=== PATIENT | male | born 1965 | race Caucasian/White ===

== ENCOUNTER → 2021-11-28 08:49 | Emergency (ER) | payer SELFPAY | END | disposition left against medical advice (07) | PROVIDERS: Emergency Provider Internal Medicine Hematology & Oncology | DX: Z53.21 Procedure and treatment not carried out due to patient leaving prior to being seen by health care provider (principal) | CPT/HCPCS: 99199 ==

== ENCOUNTER 2024-03-01 09:37 | Emergency (ER) | payer OTHER, SELFPAY ==
--- NOTE | 2024-03-01 09:39 | ED.GENADULT ---
HPI - General Adult General Chief complaint: Dizziness Stated complaint: dizziness Time Seen by Provider: 03/01/24 09:54 Source: patient, RN notes reviewed and old records reviewed Mode of arrival: ambulatory Limitations: no limitations History of Present Illness HPI narrative: 58-year-old male with no past medical history. Has not seen a doctor since he was probably in high school. Patient presents with dizziness that has been intermittent since waking up at 5:00 a.m. this morning. Patient denies any other symptoms other than dizziness. Patient denies any chest pain, shortness of breath. States he does not have any blurry vision or headaches. Onset (ago): hour(s) (5-6) Related Data Allergies Allergy/AdvReac Type Severity Reaction Status Date / Time No Known Allergies Allergy Verified 11/28/21 10:17 Review of Systems Review of Systems: All systems reviewed & are unremarkable except as noted in HPI and below Constitutional: Constitutional: Reports no additional constitutional complaints ENT: Reports system reviewed and no additional complaints, except as documented Cardiovascular: Cardiovascular: Reports no additional cardiovascular complaints, Denies chest pain and Denies dyspnea Respiratory: Respiratory: Reports no additional respiratory complaints, Denies chest congestion, Denies cough and Denies dyspnea Gastrointestinal: Gastrointestinal: Reports no additional gastrointestinal complaints, Denies abdominal pain, Denies nausea and Denies vomiting Musculoskeletal: Musculoskeletal: Reports no additional musculoskeletal complaints Integumentary/Breasts: Skin/Breast: Reports system reviewed and no additional complaints, except as docu Neurologic: Reports as per HPI and Reports dizziness PMFSH Comments At the time of my signature, I reviewed and agree with the nursing past medical, surgical, social, and family history. There is no relevant family history pertinent to the patient complaint. Exam Const: General: cooperative, healthy appearing, comfortable, no acute distress, well developed, alert and well nourished Nutritional Appearance: well nourished Orientation/consciousness: patient oriented x3 Limitations: no limitations HENMT: Head: normal to inspection Ears: hearing grossly normal bilaterally, external ears normal, TM's normal bilaterally, EAC's normal, mastoids normal and no periauricular adenopathy Face/Nose/Sinus: Normal external nose present, normal facial exam and face symmetric Face and sinus: normal facial exam and face symmetric Mouth: Yes Normal oral and palatal mucosa present, Yes lip normal and Yes tongue normal Throat: posterior oropharynx normal, uvula midline and no uvular edema Eyes: General: appearance normal, both eyes and all related structures Alignment and Position: alignment normal Periorbital: periorbital findings normal Eyelids: eyelids normal Neck: Neck: normal visual inspection, full ROM, no lymphadenopathy and no meningeal signs Chest: Chest palpation & inspection: normal inspection of the chest Resp: Effort & Inspection: normal respiratory effort and able to speak in complete sentences Auscultation: clear to auscultation bilaterally, no crackles, no rales, no rhonchi and no wheezes Cardio: Rate: tachycardic Skin: General skin exam: normal color and no rashes or lesions noted Lesions: no lesions Rashes: no rashes Wounds: no wounds Neuro: General: patient oriented x3, gait normal, tone normal, moves all extremities and no meningeal signs Cognition (Neuro): normal cognition Speech: normal speech Gait exam (Neuro): Normal gait present Extrem: General: normal to inspection, full ROM, capillary refill normal and normal gait Psych: Appearance: grossly normal and well kempt Mental Status: mental status grossly normal Speech and movement: Normal speech and movement present and Clear speech present Affect: normal affect Attitude: cooperative Course Course Emergency Course: When hiking patient up to EKG attempted to capture higher heart rate, noted to be 170-180. Was unable to capture Level of Care: Express Care Visit Vital Signs Vital signs: Vital Signs Temperature 99.8 F H 03/01/24 09:51 Pulse Rate 109 H 03/01/24 09:51 Respiratory Rate 16 03/01/24 09:51 Blood Pressure 143/90 H 03/01/24 09:51 Pulse Oximetry 98 03/01/24 09:51 Oxygen Delivery Room Air 03/01/24 09:51 Temperature 99.8 F H 03/01/24 09:51 Pulse Rate 109 H 03/01/24 09:51 Respiratory Rate 16 03/01/24 09:51 Blood Pressure 143/90 H 03/01/24 09:51 Pulse Oximetry 98 03/01/24 09:51 Oxygen Delivery Room Air 03/01/24 09:51 Reviewed Transfer Transfered to: [facility] Transportation: Other (POV per patient request, declined EMS) Transfer rationale: Patient with intermittent dizziness, abnormal EKG, denies any past medical history sending for higher level of care Accepting physician: Spoke with Dr. Hellen Garcia Decision Making [facility] Narrative Medical decision making narrative: Patient sitting comfortably in exam room. Nontoxic, vitals stable. Patient in no acute distress Patient presents for for intermittent dizziness since this morning. Abnormal EKG. Patient being transferred for further evaluation Transfer instructions reviewed with patient to go directly to the emergency room. EMS offered, he declined. All questions have been answered, and the patient deny any further questions. Some parts of this dictation were generated by voice recognition software and may contain typographical and/or grammatical inaccuracies. Differential Diagnosis Differential Diagnosis: Dizziness, otitis media, serous otitis, vertigo, cardiac issue Medical Records Medical records reviewed: Yes I reviewed the external patient's medical records. Vital Signs Vital Signs: Vital Signs Temperature 99.8 F H 03/01/24 09:51 Pulse Rate 109 H 03/01/24 09:51 Respiratory Rate 16 03/01/24 09:51 Blood Pressure 143/90 H 03/01/24 09:51 Pulse Oximetry 98 03/01/24 09:51 Oxygen Delivery Room Air 03/01/24 09:51 Temperature 99.8 F H 03/01/24 09:51 Pulse Rate 109 H 03/01/24 09:51 Respiratory Rate 16 03/01/24 09:51 Blood Pressure 143/90 H 03/01/24 09:51 Pulse Oximetry 98 03/01/24 09:51 Oxygen Delivery Room Air 03/01/24 09:51 Reviewed Lab Data Lab results reviewed: Yes I reviewed the patient's lab results. Labs: Reviewed ECG Data EKG #1: Attestation: I personally reviewed and interpreted this ECG as follows: ECG completion date: 03/01/24 ECG completion time: 10:04 Prior ECG tracings: not available for review Interpretation: Sinus tachycardia with occasional supraventricular premature complex. Right bundle branch block. Ventricle rate 107, TN interval 182, QRS duration 149. Critical Care Time Critical Care Time Critical Care Time: No Discharge Plan Discharge Clinical Impression: Dizziness, Abnormal ECG Patient Disposition: Acute Care Hospital Condition: Stable Patient Language: Syriac Follow-up/Referrals: PHYSICIAN,[employer] B[employer] LABORATORY TECHNOLOGIST [Primary Care Provider] -
[2024-03-01 09:51] VITALS: BP 143/90; PULSE 109; RESP 16; TEMP 37.7; O2SAT 98
--- NOTE | 2024-03-01 09:57 | ECG_ITS ---
Test Date: 2024-03-01 10:04:36 Measurements Intervals [place] Rate: 107 P: 40 PA: 182 QRS: 29 QRSD: 149 T: -14 QT: 338 QTc: 453 Interpretive Statements SINUS TACHYCARDIA WITH OCCASIONAL SUPRAVENTRICULAR PREMATURE COMPLEXES RIGHT BUNDLE BRANCH BLOCK [120+ ms QRS DURATION, UPRIGHT V1, 40+ ms S IN I/aVL/V4/V5/V6] No previous ECG available for comparison Electronically Signed On 03-01-2024 18:41:43 SPRAY OPERATOR by Mino Trevizo M.D.
== END 2024-03-01 10:12 | disposition short-term general hospital (02) ==
PROVIDERS: Emergency Provider Nurse Practitioner
DX: R42 Dizziness and giddiness (principal); R94.31 Abnormal electrocardiogram [ECG] [EKG]
CPT/HCPCS: 93005; 99213; G0463

== ENCOUNTER 2024-03-01 10:52 | Emergency (ER) | payer OTHER, SELFPAY ==
[2024-03-01] VITALS (7 sets, daily range): BP systolic 126–170; BP diastolic 93–105; PULSE 104–126; RESP 12–21; TEMP 36.9; O2SAT 97–100
--- NOTE | 2024-03-01 11:11 | ECG_ITS ---
Test Date: 2024-03-01 11:13:45 Measurements Intervals [place] Rate: 115 P: 44 MT: 181 QRS: 6 QRSD: 145 T: -16 QT: 331 QTc: 458 Interpretive Statements SINUS TACHYCARDIA RIGHT BUNDLE BRANCH BLOCK [120+ ms QRS DURATION, UPRIGHT V1, 40+ ms S IN I/aVL/V4/V5/V6] Compared to ECG 03/01/2024 10:04:36 No significant changes Electronically Signed On 03-01-2024 18:44:23 PRIMER INSERTING MACHINE ADJUSTER by Mino Trevizo M.D.
[2024-03-01 11:37] LABS: Basophils Absolute Auto 0.1 K/mm3 (0.0-0.1); Eosinophils Absolute Auto 0.4 K/mm3 (0-0.3); Eosinophils Percent Auto 4.3 % (0-4.4); Hematocrit 45.5 % (42.0-52.0); Hemoglobin 15.4 g/dL (14.0-18.0); Immature Granulocyte Absolute 0.01 K/mm3 (0.00-0.031); Immature Granulocyte Percent A 0.1 % (0-0.5); Lymphocytes Absolute Auto 1.57 K/mm3 (0.9-3.2); Lymphocytes Percent Auto 18.1 % (18.3-44.2); Mean Corpuscular HGB Conc 33.8 g/dl (32-36); Mean Corpuscular Hemoglobin 28.8 pg (26-34); Mean Corpuscular Volume 85.2 fl (80-100); Mean Platelet Volume 9.6 fl (7.4-10.4); Monocytes Absolute Auto 0.9 K/mm3 (0.1-0.6); Monocytes Percent Auto 10.2 % (2.6-8.5); Neutrophils Absolute Auto 5.8 K/mm3 (1.3-6.7); Neutrophils Percent Auto 66.3 % (45.5-73.1); Platelet Count Result 276 k/mm3 (150-375); Red Blood Count 5.34 M/mm3 (4.6-6.20); White Blood Count 8.7 K/mm3 (4.5-10.0)
[2024-03-01 11:47] LABS: Alanine Aminotransferase 24 U/L (6-50); Albumin Level 4.4 g/dL (3.5-5.1); Alkaline Phosphatase 59 U/L (38-126); Anion Gap 7 mmol/L (4-12); Aspartate Amino Transferase 24 U/L (17-59); Bilirubin,Total 0.6 mg/dL (0.2-1.3); Blood Urea Nitrogen 15 mg/dL (9-20); Calcium 9.3 mg/dL (8.4-10.2); Carbon Dioxide 26 mmol/L (22-30); Chloride 107 mmol/L (98-107); Estimated Glomerular Filt Rate > 60; Glucose 103 mg/dL (65-110); Potassium 3.7 mmol/L (3.4-5.0); Sodium 140 mmol/L (137-145)
[2024-03-01 12:42] LABS: D Dimer 0.32 ug/mL (<0.48); Troponin I < 0.012 ng/mL (0.000-0.034)
[2024-03-01 13:19] LABS: Influenza A QL RT-PCR Negative (Negative); Influenza B QL RT-PCR Negative (Negative); RSV RNA, RT-PCR Negative (Negative); SARS-CoV-2 RNA PCR Negative (Negative)
--- NOTE | 2024-03-01 18:40 | ED_ITS ---
HPI - Dizziness General Chief Complaint: Dizziness Stated Complaint: dizziness Time Seen by Provider: 03/01/24 11:12 History of Present Illness HPI Narrative: This morning patient got up and felt slightly lightheaded, he sat down and felt better. If he cannot remember the last time he has felt lightheaded, he has no chest pain, shortness of breath, headache, focal numbness or weakness, or any other symptoms. He has been eating and drinking normally. Does not see any doctor has not seen a doctor since he was a child Related Data Allergies Allergy/AdvReac Type Severity Reaction Status Date / Time No Known Allergies Allergy Verified 11/28/21 10:17 Course Vital Signs Vital signs: Vital Signs Pulse Rate 126 H 03/01/24 11:07 Respiratory Rate 18 03/01/24 11:07 Blood Pressure 170/94 H 03/01/24 11:07 Pulse Oximetry 98 03/01/24 11:07 Temperature 98.4 F 03/01/24 13:10 Pulse Rate 114 H 03/01/24 12:31 Respiratory Rate 12 03/01/24 12:31 Blood Pressure 147/105 H 03/01/24 12:31 Pulse Oximetry 100 03/01/24 12:31 Oxygen Delivery Room Air 03/01/24 11:34 MDM - Dizziness MDM Narrative Medical decision making narrative: This morning patient got up and felt slightly lightheaded, he sat down and felt better. If he cannot remember the last time he has felt lightheaded, he has no chest pain, shortness of breath, headache, focal numbness or weakness, or any other symptoms. He has been eating and drinking normally. Does not see any doctor has not seen a doctor since he was a child. Since he has been here, his symptoms have resolved. Denies any complaints. He is tachycardic here, EKG on my independent interpretation shows sinus tachycardia rate 115, TN 181, QRS 145, QTC 458, no ST elevations depressions, does show a right bundle branch block. Basic labs are obtained here and are normal including troponin and D-dimer. He has no complaints and no symptoms currently, he does have elevated blood pressure, since he does not see any doctors I feel this may be chronic hypertension so I will put him on blood pressure medication and follow-up to PCP provided. Discussed risks of various catastrophes including heart attack, stroke, kidney disease etc. out if he does not he any chronic conditions controlled. Strict return precautions discussed. at bedside. Lab Data 03/01/24 11:29 03/01/24 11:29 Labs: Lab Results 03/01/24 03/01/24 Range/Units 11:29 12:34 WBC 8.7 (4.5-10.0) K/mm3 RBC 5.34 (4.6-6.20) M/mm3 Hgb 15.4 (14.0-18.0) g/dL Hct 45.5 (42.0-52.0) % MCV 85.2 (80-100) fl MCH 28.8 (26-34) pg MCHC 33.8 (32-36) g/dl RDW 14.0 (11.5-14.5) % Plt Count 276 (150-375) k/mm3 MPV 9.6 (7.4-10.4) fl Immature Gran % (Auto) 0.1 (0-0.5) % Neut % (Auto) 66.3 (45.5-73.1) % Lymph % (Auto) 18.1 L (18.3-44.2) % Armstrong % (Auto) 10.2 H (2.6-8.5) % Eos % (Auto) 4.3 (0-4.4) % Baso % (Auto) 1.0 (0.2-1.2) % Lymph # (Auto) 1.57 (0.9-3.2) K/mm3 Armstrong # (Auto) 0.9 H (0.1-0.6) K/mm3 Eos # (Auto) 0.4 H (0-0.3) K/mm3 Baso # (Auto) 0.1 (0.0-0.1) K/mm3 Abs Immat Gran (auto) 0.01 (0.00-0.031) K/mm3 Absolute Neuts (auto) 5.8 (1.3-6.7) K/mm3 Absolute Nucleated RBC 0.000 (0.0-0.012) K/mm3 Nucleated RBC % 0.0 (0.0-0.2) % D-Dimer 0.32 (<0.48) ug/mL Sodium 140 (137-145) mmol/L Potassium 3.7 (3.4-5.0) mmol/L Chloride 107 (98-107) mmol/L Carbon Dioxide 26 (22-30) mmol/L Anion Gap 7 (4-12) mmol/L BUN 15 (9-20) mg/dL Creatinine 1.00 (0.7-1.3) mg/dL Estim Creat Clear Calc Not Reportable Estimated GFR > 60 (59 - ) Glucose 103 (65-110) mg/dL Calcium 9.3 (8.4-10.2) mg/dL Total Bilirubin 0.6 (0.2-1.3) mg/dL AST 24 (17-59) U/L ALT 24 (6-50) U/L Alkaline Phosphatase 59 (38-126) U/L Troponin I < 0.012 (0.000-0.034) ng/mL Total Protein 7.0 (6.3-8.2) g/dL Albumin 4.4 (3.5-5.1) g/dL Influenza A (RT-PCR) Negative (Negative) Influenza B (RT-PCR) Negative (Negative) RSV (RT-PCR) Negative (Negative) SARS-CoV-2 RNA (RT-PCR) Negative (Negative) Discharge Plan Discharge Clinical Impression: Dizziness, Tachycardia, Hypertension Patient Disposition: Home, Self-Care Condition: Stable Instructions: Hypertension (ED), Dizziness (ED), Tachycardia (ED) Additional Instructions: Please follow-up with a primary care doctor. Make sure that your keeping hydrated, come back to the hospital if you feel worse. You can start taking the blood pressure medication as prescribed. Patient Language: Tuvaluan Prescriptions: New amlodipine 5 mg tablet 5 mg PO DAILY Qty: 30 0RF Follow-up/Referrals: UNKNOWN,DOCTOR [Primary Care Provider] -
== END 2024-03-01 13:12 | disposition home or self-care (01) ==
PROVIDERS: Emergency Provider Emergency Medicine
DX: R42 Dizziness and giddiness (principal); I10 Essential (primary) hypertension; R00.0 Tachycardia, unspecified; Z20.822 Contact with and (suspected) exposure to COVID-19; I45.10 Unspecified right bundle-branch block
CPT/HCPCS: 36415; 80053; 84484; 85025; 85380; 87637; 93005; 99284

== ENCOUNTER 2025-02-01 08:06 | Outpatient (CLI) | payer OTHER, SELFPAY ==
--- NOTE | 2025-02-01 08:08 | ECG_ITS ---
Test Date: 2025-02-01 08:19:41 Measurements Intervals [place] Rate: 93 P: 67 [place]: 179 QRS: 9 QRSD: 153 T: -1 QT: 352 QTc: 438 Interpretive Statements SINUS RHYTHM RIGHT BUNDLE BRANCH BLOCK Electronically Signed On 02-01-2025 10:55:29 ELECTRICAL INSTALLATION INSPECTOR by Holland Montiel D.O
== END 2025-02-01 08:07 | disposition home or self-care (01) ==
LOC: ANHLAB 08:07
PROVIDERS: PCP Nurse Practitioner Family; Visit Provider Nurse Practitioner Family
DX: Z00.00 Encounter for general adult medical examination without abnormal findings (principal); R94.31 Abnormal electrocardiogram [ECG] [EKG]; I45.10 Unspecified right bundle-branch block
CPT/HCPCS: 93005